=== PATIENT | male | born 1955 | race African-American/Black ===

== ENCOUNTER 2022-06-27 08:49 | Inpatient (IN) | payer OTHER ==
[2022-06-27] MEDS ORDERED: BENZOCAINE/MENTHOL (CHLORASEPTIC ) LOZENGE MM PRN (10:17)
[2022-06-27] MEDS ORDERED: LOPERAMIDE HCL 2 MG CAPSULE PO PRN (10:17)
[2022-06-27] MEDS ORDERED: ACETAMINOPHEN 325 MG TABLET (FP) PO PRN (10:17)
[2022-06-27] MEDS ORDERED: NALOXONE HCL (KLOXXADO) 8 MG SPRAY NS PRN (10:17)
[2022-06-27] MEDS ORDERED: MAG HYDROX/AL HYDROX/SIMETH 30 ML UNIT-DOSE CUP PO PRN (10:17)
[2022-06-27] MEDS ORDERED: MAGNESIUM HYDROX 2400MG/30ML ORAL SUSPENSION 30 ML CUP PO PRN (10:17)
[2022-06-27] MEDS ORDERED: MAGNESIUM CITRATE 300 ML BOTTLE PO PRN (10:17)
[2022-06-27] MEDS ORDERED: IBUPROFEN 400 MG TABLET (FP) PO PRN (10:17)
[2022-06-27] MEDS ORDERED: IBUPROFEN 600 MG TABLET (FP) PO PRN (10:17)
[2022-06-27] MEDS ORDERED: clonazePAM 0.5 MG ODT TABLETS SL PRN (10:17)
[2022-06-27] MEDS ORDERED: DICYCLOMINE HCL 10 MG CAPSULE PO PRN (10:17)
[2022-06-27] MEDS ORDERED: BISMUTH SUBSALICYLATE 524 MG/30 ML PO PRN (10:17)
[2022-06-27 10:49] VITALS: BMI 35.4
[2022-06-27] MEDS ORDERED: methaDONE HCL 10 MG TABLET (FOR DETOX USE ONLY) PO ONE (11:30)
[2022-06-27] MEDS: METHOCARBAMOL 500 MG TABLET PO PRN (12:17)
[2022-06-27] MEDS: amLODIPine BESYLATE 10 MG TABLET (FP) PO SCH (15:10)
[2022-06-27] MEDS: HYDROCHLOROTHIAZIDE 12.5 MG CAPSULE (FP) PO SCH (15:10)
[2022-06-27] MEDS ORDERED: cloNIDine HCL 0.1 MG TABLET PO ONE (17:25)
[2022-06-27] MEDS: THIAMINE HCL 100 MG TABLET (FP) PO SCH (21:37)
[2022-06-27] MEDS: MELATONIN 5 MG TABLETS PO SCH (23:25)
[2022-06-28] MEDS: HYDROCHLOROTHIAZIDE 12.5 MG CAPSULE (FP) PO SCH ×2 (08:31→10:55)
[2022-06-28] MEDS: amLODIPine BESYLATE 10 MG TABLET (FP) PO SCH ×2 (08:31→10:55)
[2022-06-28 09:39] LABS: HEMOGLOBIN 14.1 GM/dL (11.7-16.9); MCH 27.1 pg (25.7-33.7); MEAN CELL VOLUME 84.9 fl (80-96); MEAN PLT VOLUME 7.4 fl (7.5-11.1); PLATELET COUNT 223 10^3/uL (134-434); RBC 5.18 M/mm3 (4.00-5.60); RDW 13.9 % (11.9-15.9); WHITE BLOOD COUNT 5.3 K/mm3 (4.0-10.0)
[2022-06-28 09:52] LABS: ALBUMIN 3.7 g/dl (3.4-5.0); BLOOD UREA NITROGEN 18.8 mg/dL (7-18); CALCIUM 9.3 mg/dL (8.5-10.1)
[2022-06-28 09:54] LABS: CREATININE 1.1 mg/dL (0.55-1.3)
[2022-06-28 09:56] LABS: BILIRUBIN,TOTAL 0.2 mg/dL (0.2-1); TOT PROT 7.6 g/dl (6.4-8.2)
[2022-06-28] MEDS: PRENATAL VITAMINS W/ FOLIC ACID TABLET (FP) PO SCH (10:50)
[2022-06-28] MEDS: ACETAMINOPHEN 325 MG TABLET (FP) PO PRN (10:53)
[2022-06-28] MEDS ORDERED: cloNIDine HCL 0.1 MG TABLET PO ONE ×2 (12:30→18:56)
[2022-06-28] MEDS ORDERED: ATENOLOL 50 MG TABLET (FP) PO SCH (18:45)
[2022-06-28] MEDS ORDERED: ATENOLOL 25 MG TABLET (FP) PO SCH (18:52)
[2022-06-28] MEDS: THIAMINE HCL 100 MG TABLET (FP) PO SCH (22:38)
[2022-06-28] MEDS: MELATONIN 5 MG TABLETS PO SCH (22:38)
[2022-06-28] MEDS: ATENOLOL 25 MG TABLET (FP) PO SCH (22:38)
[2022-06-28] MEDS ORDERED: LISINOPRIL 10 MG TABLET PO ONE (23:15)
[2022-06-29] MEDS ORDERED: methaDONE HCL 10 MG TABLET (FOR DETOX USE ONLY) PO ONE (10:00)
[2022-06-29] MEDS: ATENOLOL 25 MG TABLET (FP) PO SCH (10:29)
[2022-06-29] MEDS: HYDROCHLOROTHIAZIDE 12.5 MG CAPSULE (FP) PO SCH (10:29)
[2022-06-29] MEDS: amLODIPine BESYLATE 10 MG TABLET (FP) PO SCH (10:29)
[2022-06-29] MEDS: PRENATAL VITAMINS W/ FOLIC ACID TABLET (FP) PO SCH (10:32)
[2022-06-29] MEDS: cloNIDine HCL 0.1 MG TABLET PO SCH ×2 (11:56→22:00)
[2022-06-29] MEDS ORDERED: LIDOCAINE VISCOUS 2% ORAL/TOP 15 ML UNIT-DOSE CUP MM PRN (17:26)
[2022-06-29] MEDS: CLINDAMYCIN HCL 150 MG CAPSULE (FP) PO SCH (21:57)
[2022-06-29] MEDS: MELATONIN 5 MG TABLETS PO SCH (21:58)
[2022-06-29] MEDS: THIAMINE HCL 100 MG TABLET (FP) PO SCH (21:59)
[2022-06-29] MEDS: ACETAMINOPHEN 325 MG TABLET (FP) PO PRN (22:01)
[2022-06-30] MEDS: CLINDAMYCIN HCL 150 MG CAPSULE (FP) PO SCH ×3 (07:25→21:37)
[2022-06-30] MEDS: HYDROCHLOROTHIAZIDE 12.5 MG CAPSULE (FP) PO SCH (10:13)
[2022-06-30] MEDS: METHOCARBAMOL 500 MG TABLET PO PRN (10:13)
[2022-06-30] MEDS: cloNIDine HCL 0.1 MG TABLET PO SCH ×2 (10:13→21:37)
[2022-06-30] MEDS: amLODIPine BESYLATE 10 MG TABLET (FP) PO SCH (10:13)
[2022-06-30] MEDS: PRENATAL VITAMINS W/ FOLIC ACID TABLET (FP) PO SCH (10:14)
[2022-06-30] MEDS: ATENOLOL 25 MG TABLET (FP) PO SCH (10:15)
[2022-06-30 17:12] VITALS: RESP 18
[2022-06-30] MEDS: THIAMINE HCL 100 MG TABLET (FP) PO SCH (21:37)
[2022-06-30] MEDS: MELATONIN 5 MG TABLETS PO SCH (21:38)
[2022-07-01] MEDS: CLINDAMYCIN HCL 150 MG CAPSULE (FP) PO SCH ×3 (05:33→22:30)
[2022-07-01] MEDS: ACETAMINOPHEN 325 MG TABLET (FP) PO PRN (06:02)
[2022-07-01] MEDS ORDERED: methaDONE HCL 10 MG TABLET (FOR DETOX USE ONLY) PO ONE (10:00)
[2022-07-01] MEDS: METHOCARBAMOL 500 MG TABLET PO PRN (10:16)
[2022-07-01] MEDS: ATENOLOL 25 MG TABLET (FP) PO SCH (10:16)
[2022-07-01] MEDS: PRENATAL VITAMINS W/ FOLIC ACID TABLET (FP) PO SCH (10:16)
[2022-07-01] MEDS: cloNIDine HCL 0.1 MG TABLET PO SCH ×2 (10:16→22:30)
[2022-07-01] MEDS: amLODIPine BESYLATE 10 MG TABLET (FP) PO SCH (10:16)
[2022-07-01] MEDS: HYDROCHLOROTHIAZIDE 12.5 MG CAPSULE (FP) PO SCH (10:17)
[2022-07-01] MEDS: MELATONIN 5 MG TABLETS PO SCH (22:30)
[2022-07-01] MEDS: THIAMINE HCL 100 MG TABLET (FP) PO SCH (22:31)
[2022-07-02] MEDS: CLINDAMYCIN HCL 150 MG CAPSULE (FP) PO SCH (05:57)
[2022-07-02] MEDS: HYDROCHLOROTHIAZIDE 12.5 MG CAPSULE (FP) PO SCH (08:59)
[2022-07-02] MEDS: amLODIPine BESYLATE 10 MG TABLET (FP) PO SCH (08:59)
[2022-07-02] MEDS: PRENATAL VITAMINS W/ FOLIC ACID TABLET (FP) PO SCH (09:00)
[2022-07-02] MEDS: cloNIDine HCL 0.1 MG TABLET PO SCH (09:00)
[2022-07-02] MEDS: ATENOLOL 25 MG TABLET (FP) PO SCH (09:00)
[2022-07-02 09:06] VITALS: BP 163/96; PULSE 80; TEMP 97.5
== END 2022-07-02 09:18 | disposition home or self-care (01) | DRG 897 ==
LOC: YASAS 08:49 → Y3N 10:30
PROVIDERS: ADMIT Allergy & Immunology; ATTEND Surgery
PROC: HZ2ZZZZ Detoxification Services for Substance Abuse Treatment (ICD-10-PCS; principal; 2022-06-27)
DX: F11.23 Opioid dependence with withdrawal (principal); F41.9 Anxiety disorder, unspecified; F32.A Depression, unspecified; I10 Essential (primary) hypertension; K04.7 Periapical abscess without sinus; Z28.310 Unvaccinated for COVID-19; Z28.9 Immunization not carried out for unspecified reason
CPT/HCPCS: 36415; 80053; 85027; 86780; 93005; 93010; C9803-CS; U0003; U0005

== ENCOUNTER 2023-02-04 10:42 | Inpatient (IN) | payer OTHER ==
[2023-02-04 11:20] VITALS: BMI 32.5
[2023-02-04] MEDS ORDERED: cloNIDine HCL 0.1 MG TABLET ONE (13:30)
[2023-02-04] MEDS ORDERED: cloNIDine HCL 0.1 MG TABLET PO ONE ×2 (13:45→21:09)
[2023-02-04] MEDS ORDERED: NALOXONE HCL (KLOXXADO) 8 MG SPRAY NS PRN (13:48)
[2023-02-04] MEDS ORDERED: DICYCLOMINE HCL 10 MG CAPSULE PO PRN (13:48)
[2023-02-04] MEDS ORDERED: NICOTINE 10 MG CARTRIDGE (INHALER) IH PRN (13:48)
[2023-02-04] MEDS ORDERED: COLLOIDAL OATMEAL 1 BAR EACH TP PRN (13:48)
[2023-02-04] MEDS ORDERED: AMMONIUM LACTATE 12% LOTION 225 GM BOTTLE TP PRN (13:48)
[2023-02-04] MEDS ORDERED: POLYETHYLENE GLYCOL (HEALTHYLAX) 3350 17 GM PACKET PO PRN (13:48)
[2023-02-04] MEDS ORDERED: MAGNESIUM HYDROX 2400MG/30ML ORAL SUSPENSION 30 ML CUP PO PRN (13:48)
[2023-02-04] MEDS ORDERED: guaiFENesin 600 MG TABLET.ER (FP) PO PRN (13:48)
[2023-02-04] MEDS ORDERED: LOPERAMIDE HCL 2 MG CAPSULE PO PRN (13:48)
[2023-02-04] MEDS ORDERED: MAG HYDROX/AL HYDROX/SIMETH 30 ML UNIT-DOSE CUP PO PRN (13:48)
[2023-02-04] MEDS ORDERED: BENZOCAINE/MENTHOL (CHLORASEPTIC ) LOZENGE MM PRN (13:48)
[2023-02-04] MEDS ORDERED: IBUPROFEN 400 MG TABLET (FP) PO PRN (13:48)
[2023-02-04] MEDS ORDERED: BISMUTH SUBSALICYLATE 262 MG/15 ML BTL PO PRN (13:48)
[2023-02-04] MEDS ORDERED: ACETAMINOPHEN 325 MG TABLET (FP) PO PRN (13:48)
[2023-02-04] MEDS ORDERED: ONDANSETRON *ODT* 4 MG TABLET SL PRN (13:48)
[2023-02-04] MEDS ORDERED: BENZONATATE 200 MG CAPSULE PO PRN (13:48)
[2023-02-04] MEDS ORDERED: NALOXONE HCL 0.4 MG/ML VIAL IM PRN (13:48)
[2023-02-04] MEDS ORDERED: amLODIPine BESYLATE 5 MG TABLET (FP) ONE ×2 (14:59→15:02)
[2023-02-04] MEDS: amLODIPine BESYLATE 10 MG TABLET (FP) PO SCH (15:01)
[2023-02-04] MEDS: HYDROCHLOROTHIAZIDE 12.5 MG CAPSULE (FP) PO SCH (15:09)
[2023-02-04 15:37] LABS: HEMATOCRIT 42.7 % (35.4-49); HEMOGLOBIN 14.1 GM/dL (11.7-16.9); MCH 27.6 pg (25.7-33.7); MEAN CELL VOLUME 83.5 fl (80-96); MEAN PLT VOLUME 7.4 fl (7.5-11.1); PLATELET COUNT 201 10^3/uL (134-434); RBC 5.12 M/mm3 (4.00-5.60); RDW 14.1 % (11.9-15.9); WHITE BLOOD COUNT 5.8 K/mm3 (4.0-10.0)
[2023-02-04 15:58] LABS: POTASSIUM 4.1 mmol/L (3.5-5.1)
[2023-02-04 16:00] LABS: CALCIUM 9.3 mg/dL (8.5-10.1)
[2023-02-04 16:01] LABS: ALBUMIN 4.2 g/dl (3.4-5.0)
[2023-02-04 16:04] LABS: CREATININE 1.2 mg/dL (0.55-1.3)
[2023-02-04 16:05] LABS: BILIRUBIN,TOTAL 0.6 mg/dL (0.2-1)
[2023-02-04] MEDS: THIAMINE HCL 100 MG TABLET (FP) PO SCH (21:33)
[2023-02-04] MEDS: MELATONIN 5 MG TABLETS PO SCH (21:33)
[2023-02-05] MEDS: PRENATAL VITAMINS W/ FOLIC ACID TABLET (FP) PO SCH (10:17)
[2023-02-05] MEDS: amLODIPine BESYLATE 10 MG TABLET (FP) PO SCH (10:18)
[2023-02-05] MEDS: HYDROCHLOROTHIAZIDE 12.5 MG CAPSULE (FP) PO SCH (10:18)
[2023-02-05] MEDS ORDERED: LORazepam 1 MG TABLET PO PRN (13:34)
[2023-02-05] MEDS ORDERED: LORazepam 1 MG TABLET PO ONE (13:37)
[2023-02-05] MEDS ORDERED: cloNIDine HCL 0.1 MG TABLET PO ONE (13:38)
[2023-02-05] MEDS ORDERED: methaDONE HCL 10 MG TABLET (FOR DETOX USE ONLY) PO ONE (14:00)
[2023-02-05] MEDS: LORazepam 1 MG TABLET PO SCH ×2 (17:35→22:11)
[2023-02-05] MEDS: MELATONIN 5 MG TABLETS PO SCH (22:11)
[2023-02-05] MEDS: THIAMINE HCL 100 MG TABLET (FP) PO SCH (22:11)
[2023-02-06] MEDS ORDERED: LORazepam 1 MG TABLET PO SCH (05:00)
[2023-02-06] MEDS: amLODIPine BESYLATE 10 MG TABLET (FP) PO SCH (10:00)
[2023-02-06] MEDS: PRENATAL VITAMINS W/ FOLIC ACID TABLET (FP) PO SCH (10:00)
[2023-02-06] MEDS: HYDROCHLOROTHIAZIDE 12.5 MG CAPSULE (FP) PO SCH (10:00)
[2023-02-06] MEDS: cloNIDine HCL 0.1 MG TABLET PO PRN ×2 (15:41→20:00)
[2023-02-06] MEDS: THIAMINE HCL 100 MG TABLET (FP) PO SCH (22:38)
[2023-02-06] MEDS: MELATONIN 5 MG TABLETS PO SCH (22:38)
[2023-02-07] MEDS: cloNIDine HCL 0.1 MG TABLET PO PRN ×2 (00:50→22:28)
[2023-02-07] MEDS ORDERED: LORazepam 0.5 MG TABLET PO SCH (05:00)
[2023-02-07] MEDS ORDERED: methaDONE HCL 10 MG TABLET (FOR DETOX USE ONLY) PO ONE (10:00)
[2023-02-07] MEDS: amLODIPine BESYLATE 10 MG TABLET (FP) PO SCH (10:31)
[2023-02-07] MEDS: HYDROCHLOROTHIAZIDE 12.5 MG CAPSULE (FP) PO SCH (10:31)
[2023-02-07] MEDS: PRENATAL VITAMINS W/ FOLIC ACID TABLET (FP) PO SCH (10:31)
[2023-02-07] MEDS: LISINOPRIL 5 MG TABLET PO SCH (14:53)
[2023-02-07] MEDS: MELATONIN 5 MG TABLETS PO SCH (22:28)
[2023-02-07] MEDS: hydrOXYzine PAMOATE 25 MG CAPSULE (FP) PO PRN (22:28)
[2023-02-07] MEDS: THIAMINE HCL 100 MG TABLET (FP) PO SCH (22:28)
[2023-02-08] MEDS ORDERED: LORazepam 0.5 MG TABLET PO PRN
[2023-02-08] MEDS ORDERED: LORazepam 0.5 MG TABLET PO ONE (05:00)
[2023-02-08] MEDS: PRENATAL VITAMINS W/ FOLIC ACID TABLET (FP) PO SCH (09:37)
[2023-02-08] MEDS: IBUPROFEN 600 MG TABLET (FP) PO PRN (09:38)
[2023-02-08] MEDS: HYDROCHLOROTHIAZIDE 12.5 MG CAPSULE (FP) PO SCH (09:38)
[2023-02-08] MEDS: amLODIPine BESYLATE 10 MG TABLET (FP) PO SCH (09:38)
[2023-02-08] MEDS: LISINOPRIL 5 MG TABLET PO SCH (09:42)
[2023-02-08] MEDS: hydrOXYzine PAMOATE 25 MG CAPSULE (FP) PO PRN ×2 (15:25→22:08)
[2023-02-08] MEDS: MELATONIN 5 MG TABLETS PO SCH (22:08)
[2023-02-08] MEDS: THIAMINE HCL 100 MG TABLET (FP) PO SCH (22:08)
[2023-02-09] MEDS: PRENATAL VITAMINS W/ FOLIC ACID TABLET (FP) PO SCH (09:12)
[2023-02-09] MEDS: LISINOPRIL 5 MG TABLET PO SCH (09:12)
[2023-02-09] MEDS: amLODIPine BESYLATE 10 MG TABLET (FP) PO SCH (09:12)
[2023-02-09] MEDS: HYDROCHLOROTHIAZIDE 12.5 MG CAPSULE (FP) PO SCH (09:12)
[2023-02-09] MEDS ORDERED: methaDONE HCL 10 MG TABLET (FOR DETOX USE ONLY) PO ONE (10:00)
[2023-02-09] MEDS: hydrOXYzine PAMOATE 25 MG CAPSULE (FP) PO PRN (10:03)
[2023-02-09] MEDS: THIAMINE HCL 100 MG TABLET (FP) PO SCH (22:02)
[2023-02-09] MEDS: MELATONIN 5 MG TABLETS PO SCH (22:02)
[2023-02-10] MEDS: hydrOXYzine PAMOATE 25 MG CAPSULE (FP) PO PRN (05:30)
[2023-02-10] MEDS: IBUPROFEN 600 MG TABLET (FP) PO PRN (05:30)
[2023-02-10 09:33] VITALS: BP 161/84; PULSE 87; RESP 18; TEMP 98
[2023-02-10] MEDS: PRENATAL VITAMINS W/ FOLIC ACID TABLET (FP) PO SCH (10:19)
[2023-02-10] MEDS: HYDROCHLOROTHIAZIDE 12.5 MG CAPSULE (FP) PO SCH (10:19)
[2023-02-10] MEDS: amLODIPine BESYLATE 10 MG TABLET (FP) PO SCH (10:19)
[2023-02-10] MEDS: LISINOPRIL 5 MG TABLET PO SCH (10:19)
== END 2023-02-10 12:23 | disposition other institution (70) | DRG 897 ==
LOC: YASAS 10:42 → Y3N 14:34 → UNDOADMIN 14:34
PROVIDERS: ADMIT Allergy & Immunology; ATTEND Surgery
PROC: HZ2ZZZZ Detoxification Services for Substance Abuse Treatment (ICD-10-PCS; principal; 2023-02-04)
DX: F11.23 Opioid dependence with withdrawal (principal); F32.A Depression, unspecified; I10 Essential (primary) hypertension; Z28.310 Unvaccinated for COVID-19; Z28.9 Immunization not carried out for unspecified reason
CPT/HCPCS: 36415; 80053; 85027; 86780; C9803-CS; U0003; U0005

== ENCOUNTER 2023-02-10 12:32 | Inpatient (IN) | payer OTHER ==
[2023-02-10] MEDS ORDERED: BENZONATATE 200 MG CAPSULE PO PRN (14:02)
[2023-02-10] MEDS ORDERED: IBUPROFEN 600 MG TABLET (FP) PO PRN (14:02)
[2023-02-10] MEDS ORDERED: COLLOIDAL OATMEAL 1 BAR EACH TP PRN (14:02)
[2023-02-10] MEDS ORDERED: NALOXONE HCL (KLOXXADO) 8 MG SPRAY NS PRN (14:02)
[2023-02-10] MEDS ORDERED: POLYETHYLENE GLYCOL (HEALTHYLAX) 3350 17 GM PACKET PO PRN (14:02)
[2023-02-10] MEDS ORDERED: NICOTINE 10 MG CARTRIDGE (INHALER) IH PRN (14:02)
[2023-02-10] MEDS ORDERED: NICOTINE POLACRILEX 4 MG GUM BUC PRN (14:02)
[2023-02-10] MEDS ORDERED: IBUPROFEN 400 MG TABLET (FP) PO PRN (14:02)
[2023-02-10] MEDS ORDERED: NALOXONE HCL 0.4 MG/ML VIAL IVPUSH PRN (14:02)
[2023-02-10] MEDS ORDERED: guaiFENesin 600 MG TABLET.ER (FP) PO PRN (14:02)
[2023-02-10] MEDS ORDERED: MAGNESIUM HYDROX 2400MG/30ML ORAL SUSPENSION 30 ML CUP PO PRN (14:02)
[2023-02-10] MEDS ORDERED: ACETAMINOPHEN 325 MG TABLET (FP) PO PRN (14:02)
[2023-02-10] MEDS ORDERED: BENZOCAINE/MENTHOL (CHLORASEPTIC ) LOZENGE MM PRN (14:02)
[2023-02-10] MEDS ORDERED: hydrOXYzine PAMOATE 25 MG CAPSULE (FP) PO PRN (14:02)
[2023-02-10] MEDS ORDERED: LOPERAMIDE HCL 2 MG CAPSULE PO PRN (14:02)
[2023-02-10] MEDS ORDERED: AMMONIUM LACTATE 12% LOTION 225 GM BOTTLE TP PRN (14:02)
[2023-02-10] MEDS ORDERED: NICOTINE 14 MG/24 HOURS TOPICAL PATCH TD PRN (14:02)
[2023-02-10] MEDS ORDERED: MAG HYDROX/AL HYDROX/SIMETH 30 ML UNIT-DOSE CUP PO PRN (14:02)
[2023-02-10] MEDS ORDERED: HYDROCHLOROTHIAZIDE 12.5 MG CAPSULE (FP) PO SCH (17:00)
[2023-02-10] MEDS ORDERED: HYDROCHLOROTHIAZIDE 12.5 MG CAPSULE (FP) PO ONE (18:00)
[2023-02-10] MEDS: MELATONIN 5 MG TABLETS PO SCH (21:04)
[2023-02-10] MEDS: THIAMINE HCL 100 MG TABLET (FP) PO SCH (21:04)
[2023-02-11] MEDS ORDERED: cloNIDine HCL 0.1 MG TABLET PO ONE (07:45)
[2023-02-11] MEDS: HYDROCHLOROTHIAZIDE 12.5 MG CAPSULE (FP) PO SCH (09:32)
[2023-02-11] MEDS: amLODIPine BESYLATE 10 MG TABLET (FP) PO SCH (09:32)
[2023-02-11] MEDS: PRENATAL VITAMINS W/ FOLIC ACID TABLET (FP) PO SCH (09:32)
[2023-02-11] MEDS ORDERED: HYDROCHLOROTHIAZIDE 12.5 MG CAPSULE (FP) PO SCH (10:00)
[2023-02-11] MEDS: LORATADINE 10 MG TABLET PO SCH (12:16)
[2023-02-11] MEDS: MELATONIN 5 MG TABLETS PO SCH (21:29)
[2023-02-11] MEDS: THIAMINE HCL 100 MG TABLET (FP) PO SCH (21:29)
[2023-02-11] MEDS: cloNIDine HCL 0.1 MG TABLET PO PRN (21:29)
[2023-02-12] MEDS: amLODIPine BESYLATE 10 MG TABLET (FP) PO SCH (09:47)
[2023-02-12] MEDS: LORATADINE 10 MG TABLET PO SCH (09:48)
[2023-02-12] MEDS: HYDROCHLOROTHIAZIDE 12.5 MG CAPSULE (FP) PO SCH (09:48)
[2023-02-12] MEDS: PRENATAL VITAMINS W/ FOLIC ACID TABLET (FP) PO SCH (09:48)
[2023-02-12] MEDS: MELATONIN 5 MG TABLETS PO SCH (21:32)
[2023-02-12] MEDS: THIAMINE HCL 100 MG TABLET (FP) PO SCH (21:32)
[2023-02-12] MEDS: cloNIDine HCL 0.1 MG TABLET PO PRN (21:33)
[2023-02-13] MEDS: cloNIDine HCL 0.1 MG TABLET PO PRN ×2 (06:13→21:11)
[2023-02-13] MEDS: amLODIPine BESYLATE 10 MG TABLET (FP) PO SCH (09:55)
[2023-02-13] MEDS: LORATADINE 10 MG TABLET PO SCH (09:55)
[2023-02-13] MEDS: PRENATAL VITAMINS W/ FOLIC ACID TABLET (FP) PO SCH (09:56)
[2023-02-13] MEDS: HYDROCHLOROTHIAZIDE 12.5 MG CAPSULE (FP) PO SCH (09:56)
[2023-02-13] MEDS: MELATONIN 5 MG TABLETS PO SCH (21:11)
[2023-02-13] MEDS: THIAMINE HCL 100 MG TABLET (FP) PO SCH (21:12)
[2023-02-13] MEDS: BACLOFEN 10 MG TABLET (FP) PO PRN (21:13)
[2023-02-14] MEDS: LORATADINE 10 MG TABLET PO SCH (10:04)
[2023-02-14] MEDS: HYDROCHLOROTHIAZIDE 12.5 MG CAPSULE (FP) PO SCH (10:04)
[2023-02-14] MEDS: PRENATAL VITAMINS W/ FOLIC ACID TABLET (FP) PO SCH (10:04)
[2023-02-14] MEDS: amLODIPine BESYLATE 10 MG TABLET (FP) PO SCH (10:04)
[2023-02-14] MEDS: BACLOFEN 10 MG TABLET (FP) PO PRN ×2 (12:01→21:22)
[2023-02-14] MEDS: MELATONIN 5 MG TABLETS PO SCH (21:21)
[2023-02-14] MEDS: THIAMINE HCL 100 MG TABLET (FP) PO SCH (21:22)
[2023-02-14] MEDS: cloNIDine HCL 0.1 MG TABLET PO PRN (21:22)
[2023-02-15 06:47] VITALS: TEMP 98.1
[2023-02-15 09:07] VITALS: RESP 19
[2023-02-15] MEDS: HYDROCHLOROTHIAZIDE 12.5 MG CAPSULE (FP) PO SCH (10:03)
[2023-02-15] MEDS: PRENATAL VITAMINS W/ FOLIC ACID TABLET (FP) PO SCH (10:03)
[2023-02-15] MEDS: amLODIPine BESYLATE 10 MG TABLET (FP) PO SCH (10:04)
[2023-02-15] MEDS: LORATADINE 10 MG TABLET PO SCH (10:04)
[2023-02-15 14:28] VITALS: BP 134/86; PULSE 55
== END 2023-02-15 16:05 | disposition left against medical advice (07) | DRG 894 ==
LOC: YASAS 12:32 → Y3E 12:34
PROVIDERS: ADMIT Allergy & Immunology; ATTEND Psychiatry & Neurology Pain Medicine
PROC: HZ42ZZZ Group Counseling for Substance Abuse Treatment, Cognitive-Behavioral (ICD-10-PCS; principal; 2023-02-10)
DX: F11.20 Opioid dependence, uncomplicated (principal); F10.20 Alcohol dependence, uncomplicated; F19.24 Other psychoactive substance dependence with psychoactive substance-induced mood disorder; F42.9 Obsessive-compulsive disorder, unspecified; F32.9 Major depressive disorder, single episode, unspecified; I10 Essential (primary) hypertension; Z62.810 Personal history of physical and sexual abuse in childhood
CPT/HCPCS: 36415; 84132; 86803; J0475

== ENCOUNTER 2023-02-14 14:36 | Emergency (ER) | payer OTHER ==
[2023-02-14 14:58] VITALS: RESP 18; TEMP 98; BMI 33.5
[2023-02-14] MEDS ORDERED: METOCLOPRAMIDE HCL INJECTION 10 MG/2 ML VIAL IVPB ONE (15:01)
[2023-02-14] MEDS ORDERED: ACETAMINOPHEN 1000 MG/100 ML BAG IVPB ONE (15:01)
[2023-02-14] MEDS ORDERED: SODIUM CHLORIDE 0.9% 500 ML INFUS.BAG IV ONE (15:01)
[2023-02-14] MEDS ORDERED: METOCLOPRAMIDE HCL INJECTION 10 MG/2 ML VIAL ONE (15:04)
[2023-02-14] MEDS ORDERED: ACETAMINOPHEN INJECTION 100 ML IVPB ONE (15:04)
[2023-02-14 15:41] LABS: BASO % 0.3 % (0-2.0); EOS % 1.2 % (0-4.5); HEMATOCRIT 43.3 % (35.4-49); HEMOGLOBIN 14.4 GM/dL (11.7-16.9); LYMPH % 21.8 % (8-40); MCH 27.4 pg (25.7-33.7); MCHC 33.3 g/dl (32.0-35.9); MEAN CELL VOLUME 82.4 fl (80-96); MEAN PLT VOLUME 7.2 fl (7.5-11.1); MONO % 11.2 % (3.8-10.2); NEUT % 65.5 % (42.8-82.8); PLATELET COUNT 224 10^3/uL (134-434); RBC 5.26 M/mm3 (4.00-5.60); WHITE BLOOD COUNT 8.6 K/mm3 (4.0-10.0)
[2023-02-14 15:56] LABS: POTASSIUM 3.8 mmol/L (3.5-5.1)
[2023-02-14 15:58] LABS: BLOOD UREA NITROGEN 19.7 mg/dL (7-18); CALCIUM 9.6 mg/dL (8.5-10.1)
[2023-02-14 15:59] LABS: ALBUMIN 3.8 g/dl (3.4-5.0)
[2023-02-14 16:02] LABS: CREATININE 1.1 mg/dL (0.55-1.3)
[2023-02-14 16:04] LABS: BILIRUBIN,TOTAL 0.3 mg/dL (0.2-1); TOT PROT 7.7 g/dl (6.4-8.2)
[2023-02-14 16:35] VITALS: BP 160/92; PULSE 73
== END 2023-02-14 17:04 | disposition home or self-care (01) ==
LOC: JER 14:36
PROC: 3E033NZ Introduction of Analgesics, Hypnotics, Sedatives into Peripheral Vein, Percutaneous Approach (ICD-10-PCS; principal; 2023-02-14)
PROC: 3E033GC Introduction of Other Therapeutic Substance into Peripheral Vein, Percutaneous Approach (ICD-10-PCS; 2023-02-14)
DX: R51.9 Headache, unspecified (principal)
CPT/HCPCS: 36415; 70450-TC; 80053; 85025; 96374; 96375; 99284-25